=== PATIENT | female | born 1990 | race Caucasian/White ===

== ENCOUNTER 2017-03-03 17:26 | Emergency (ER) | payer OTHER ==
[2017-03-03] MEDS ORDERED: LACTATED RINGERS 1,000 ML ONE (18:25)
[2017-03-03 18:27] LABS: ABSOLUTE NEUTROPHIL COUNT 4.8 K/mm3 (1.8-7.7); BASO % 0.4 % (0.2-1.0); EOS # 0.1 (0.0-0.5); EOS % 1.8 % (0.9-2.9); HEMATOCRIT 38.1 % (37.0-47.0); HEMOGLOBIN 12.1 gm/l (12.0-16.0); IMM NEUT% 0.1 % (0-1); LYMPH # 1.9 (1.0-4.8); LYMPH % 26.2 % (15-45); MEAN CELL VOLUME 90.7 fl (81.0-99.0); MEAN CORPUSCULAR HEMOGLOBIN 28.8 pg (27.0-31.0); MEAN CORPUSCULAR HGB CONC 31.8 g/dl (33.0-37.0); MONO # 0.5 (0.0-0.8); MONO % 7.2 % (4-12); NEUT % 64.3 % (43-75); PLATELET COUNT 275 K/mm3 (130-400)
[2017-03-03 18:47] LABS: CALCIUM 9.5 mg/dL (8.6-10.3)
[2017-03-03] MEDS ORDERED: MECLIZINE HCL 25 MG TABLET ONE (19:16)
[2017-03-03] MEDS ORDERED: ONDANSETRON 4 MG ODT TAB ONE (19:59)
[2017-03-03] MEDS ORDERED: DIAZEPAM 5 MG TABLET ONE (20:00)
== END 2017-03-03 20:56 | disposition home or self-care (01) ==
LOC: ED 17:26
DX: H81.399 Other peripheral vertigo, unspecified ear (principal)
CPT/HCPCS: 84703; 85025; 80048; 99284; 93005; 99283; A9270 ×3; J7120